=== PATIENT | male | born 1945 | race Caucasian/White ===

== ENCOUNTER → 2018-11-06 | Outpatient (CLI) | payer MEDICARE, OTHER ==
[~2018-11-06] MED LIST: ALBU90OI INH; ALBU90OI61 INH; BENZ100A PO; BUDE6HFA INH; CARV6.25 PO; DULO60 PO; GABA300 PO; HYDACE10B PO; IBUP800 PO; LEVO750 PO; LISHYD2012 PO; Lovenox120 MG/0.8 SC; Lovenox40 MG/0.4 SC; MORP20ER PO; MORP30 PO; NISOLDIPINE; NISOLDIPINE PO; OMEP10ER PO; PRAV20 PO; SENN187 PO; SERT25 PO; SPIR50 PO; TIOT18 IH; TRAZ50 PO; TUDORZA PRESS400 MCG INH; WARF5 PO; XARELTO15 MG PO; XARELTO20 MG PO; [UNRECOGNIZED DRUG - OTHER] PO
== END | disposition home or self-care (01) ==
LOC: LAB SHORT 08:52 → PLD 08:52
DX: C44.519 Basal cell carcinoma of skin of other part of trunk (principal)
CPT/HCPCS: 88305

== ENCOUNTER 2019-04-23 11:50 | Day surgery (SDC) | payer MEDICARE, OTHER ==
[~2019-04-23] VITALS: Ht 188 cm; Wt 135.0 kg
[~2019-04-23 11:50] MED LIST changes: +BREO ELLIPTA 11 EACH INH; +OMEPRAZOLE20 MG PO; +PRAVASTATIN SOD10 MG PO; +ZESTORETIC 20-251 EA PO
== END 2019-04-23 14:47 | disposition home or self-care (01) ==
LOC: ORSCSDS 11:50
DX: K22.70 Barrett's esophagus without dysplasia (principal); Z12.11 Encounter for screening for malignant neoplasm of colon; Z86.010 Personal history of colon polyps; D12.0 Benign neoplasm of cecum; D12.2 Benign neoplasm of ascending colon; D12.4 Benign neoplasm of descending colon; D12.3 Benign neoplasm of transverse colon; K57.30 Diverticulosis of large intestine without perforation or abscess without bleeding; G47.33 Obstructive sleep apnea (adult) (pediatric); K44.9 Diaphragmatic hernia without obstruction or gangrene; E66.01 Morbid (severe) obesity due to excess calories; Z68.41 Body mass index [BMI] 40.0-44.9, adult; I10 Essential (primary) hypertension; E78.5 Hyperlipidemia, unspecified; J44.9 Chronic obstructive pulmonary disease, unspecified; I25.10 Atherosclerotic heart disease of native coronary artery without angina pectoris; Z86.718 Personal history of other venous thrombosis and embolism; Z79.01 Long term (current) use of anticoagulants; Z79.899 Other long term (current) drug therapy
CPT/HCPCS: 88305; 93005; 93010; J2704; J7120

== ENCOUNTER 2019-11-26 14:02 | Day surgery (SDC) | payer MEDICARE, OTHER ==
[~2019-11-26] VITALS: Ht 182.9 cm; Wt 136.3 kg
[~2019-11-26 14:02] MED LIST changes: +INCRUSE ELLI62.5 MC1 INH; +OMEP20ER PO
--- NOTE | 2019-11-26 14:56 | NUR ---
11/26/19 1456 Lee Ann Armenta PT. WITH COARSE LUNGS WITH WHEEZES. PT. VERBALIZES HAVING BRONCHITIS, COPD, HX LUNG CA. PT. COUGHED WHICH HELPED THE COARSENESS. DR. BERG NOTIFIED ORDERS GIVEN FOR DUO NEB WHICH WAS GIVEN.
--- NOTE | 2019-11-26 15:17 | NUR ---
11/26/19 1517 Lee Ann Armenta USING PEDIATRIC COLONOSCOPE FOR UPPER PROCEDURE PER DR. GUTIERRZE.
--- NOTE | 2019-11-26 16:17 | NUR ---
11/26/19 1616 Lee Ann Armenta PT. COUGHING & COUGHING POST PROCEDURE. PT. COUGHING UP THICH WHITE TO CLEAR SECRETIONS, SMALL AMT. PT. DENIES SORE THROAT OR TROUBLE SWALLOWOING.
== END 2019-11-26 16:10 | disposition home or self-care (01) ==
LOC: ORSCSDS 14:02
PROVIDERS: Internal Medicine Gastroenterology
PROC: 0DB58ZX Excision of Esophagus, Via Natural or Artificial Opening Endoscopic, Diagnostic (ICD-10-PCS; principal; 2019-11-26 15:15)
DX: K22.70 Barrett's esophagus without dysplasia (principal); K21.9 Gastro-esophageal reflux disease without esophagitis; G47.33 Obstructive sleep apnea (adult) (pediatric); E66.01 Morbid (severe) obesity due to excess calories; Z68.41 Body mass index [BMI] 40.0-44.9, adult; I10 Essential (primary) hypertension; I25.10 Atherosclerotic heart disease of native coronary artery without angina pectoris; I25.2 Old myocardial infarction; Z79.899 Other long term (current) drug therapy
CPT/HCPCS: 88305; J2704; J7120

== ENCOUNTER 2020-12-24 09:11 | Day surgery (SDC) | payer MEDICARE, OTHER ==
[~2020-12-24] VITALS: Ht 182.9 cm; Wt 139.5 kg
--- NOTE | 2020-12-24 09:53 | NUR ---
Patient states colon prep results clear. History, Chart, Medications and Allergies reviewed before start of procedure.Patient confirms NPO status and agrees with scheduled surgery. PT ALERT AND ORIENTED.
--- NOTE | 2020-12-24 10:27 | NUR ---
12/24/20 1027 Modesta Khanna MONITOR INTACT WITH CONTINUOUS PULSE OXIMETRY AND INTERMITTENT BP.
--- NOTE | 2020-12-24 12:11 | NUR ---
Patient up to Ambulate independently. Gait steady. Discharge instructions reviewed with patient. Patient verbalizes understanding. Copy given to patient to take home, ALSO DISCUSSED WITH OVER PHONE WHO WILL BE GIVING HIM A RIDE HOME. Discharged via wheelchair to private car for ride home WITH . PT TOLERATING PO INTAKE. IV OUT WNL.
== END 2020-12-24 12:13 | disposition home or self-care (01) ==
LOC: ORSCMMR 09:11 → ORD 10:30 → ORSCMMR 12:13
PROVIDERS: Internal Medicine Gastroenterology
PROC: 0DBM8ZX Excision of Descending Colon, Via Natural or Artificial Opening Endoscopic, Diagnostic (ICD-10-PCS; principal; 2020-12-24 10:30)
PROC: 0DB58ZX Excision of Esophagus, Via Natural or Artificial Opening Endoscopic, Diagnostic (ICD-10-PCS; principal; 2020-12-24 10:30)
PROC: 0DB68ZX Excision of Stomach, Via Natural or Artificial Opening Endoscopic, Diagnostic (ICD-10-PCS; principal; 2020-12-24 10:30)
PROC: 0DBP8ZX Excision of Rectum, Via Natural or Artificial Opening Endoscopic, Diagnostic (ICD-10-PCS; principal; 2020-12-24 10:30)
PROC: 0DBL8ZX Excision of Transverse Colon, Via Natural or Artificial Opening Endoscopic, Diagnostic (ICD-10-PCS; principal; 2020-12-24 10:30)
DX: K22.70 Barrett's esophagus without dysplasia (principal); Z86.010 Personal history of colon polyps; D12.3 Benign neoplasm of transverse colon; D12.4 Benign neoplasm of descending colon; D12.8 Benign neoplasm of rectum; K57.30 Diverticulosis of large intestine without perforation or abscess without bleeding; K64.8 Other hemorrhoids; K44.9 Diaphragmatic hernia without obstruction or gangrene; G47.30 Sleep apnea, unspecified; J44.9 Chronic obstructive pulmonary disease, unspecified; I25.10 Atherosclerotic heart disease of native coronary artery without angina pectoris; E66.9 Obesity, unspecified; Z68.41 Body mass index [BMI] 40.0-44.9, adult; Z79.899 Other long term (current) drug therapy
CPT/HCPCS: 88305; 88342; J7120

== ENCOUNTER 2021-07-14 19:39 | Emergency (ER) | payer MEDICARE, OTHER ==
[~2021-07-14] VITALS: Ht 188 cm; Wt 136.1 kg
== END 2021-07-14 22:20 | disposition home or self-care (01) ==
LOC: ER 19:39
DX: M71.21 Synovial cyst of popliteal space [Baker], right knee (principal); Z88.2 Allergy status to sulfonamides; Z88.8 Allergy status to other drugs, medicaments and biological substances; Z79.899 Other long term (current) drug therapy; I10 Essential (primary) hypertension; K21.9 Gastro-esophageal reflux disease without esophagitis; Z87.891 Personal history of nicotine dependence
CPT/HCPCS: 93971; 99283-25

== ENCOUNTER 2023-04-20 18:11 | Emergency (ER) | payer MEDICARE, OTHER ==
[~2023-04-20] VITALS: Ht 188 cm; Wt 129.3 kg
[~2023-04-20 18:11] MED LIST changes: +DONEPEZIL HCL10 M1 PO; +ESCI10 PO; +GABA100 PO; +MEMANTINE HCL E21 MG PO; +PREGABALIN50 MG PO; +XARELTO20 M1 PO
[2023-04-20 18:18] VITALS: BP 146/97
== END 2023-04-20 18:41 | disposition home or self-care (01) ==
LOC: ER 18:11
DX: I83.891 Varicose veins of right lower extremity with other complications (principal); Z87.891 Personal history of nicotine dependence; Z79.899 Other long term (current) drug therapy
CPT/HCPCS: 99282

== ENCOUNTER 2023-04-20 20:59 | Emergency (ER) | payer MEDICARE, OTHER ==
[~2023-04-20] VITALS: Ht 182.9 cm; Wt 104.3 kg
[2023-04-20 21:03] VITALS: BP 150/70
== END 2023-04-20 21:42 | disposition home or self-care (01) ==
LOC: ER 20:59
DX: I83.891 Varicose veins of right lower extremity with other complications (principal); I10 Essential (primary) hypertension; K21.9 Gastro-esophageal reflux disease without esophagitis; Z88.2 Allergy status to sulfonamides; Z88.8 Allergy status to other drugs, medicaments and biological substances; Z79.899 Other long term (current) drug therapy; Z79.02 Long term (current) use of antithrombotics/antiplatelets
CPT/HCPCS: 12001; 99283-25